=== PATIENT | female | born 1960 | race Caucasian/White ===

== ENCOUNTER 2016-07-18 20:16 | Emergency (ER) | payer BC ==
[2016-07-18 20:45] VITALS: BP 110/55
--- NOTE | 2016-07-18 21:48 | UC ---
Abdominal Pain Female HPI - HPI Summary HPI Summary: The patient comes in today for: 1. "stomach pain": Onset: two weeks. Palliative/provocative: Tums seemed to help, but for only 30 minutes. Leaning forward or walking may help "a little bit." Quality: Sharp stabbing pain. Region: Midline from below the navel to the epigastric area. Severity: Tonight, the pain was 8/10--now it is 2/10 Time: Associated symptoms: Frequency: One episode one week ago--lasting about 2 hours Second episode 3 days ago--2-3 hours. Third episode--tonight--2 hours--now it is subsiding FEvers: None. Vomitinst episode, but nausea with the other ones. Diarrhea: Second episode only. Travel. Last BM: this morning and it was normal. Previous disease: Pancreas--none. She had her gallbladder out. She had an upper endoscopy 2 years ago done for "something similar to this." Dx. gastritis. Prilosec taken which helped. But, she did not continue it with her osteopenia. She takes naproxen/aleve for her migraines. Her intake of NSAIDS will be 1- 2 times a week. 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 Allergies/Adverse Reactions: Allergies Allergy/AdvReac Type Severity Reaction Status Date / Time Codeine Allergy Hives Verified 07/18/16 20:37 Home Medications: Home Medications Cholecalciferol [Vitamin D] 2,000 units PO DAILY 07/18/16 [History Confirmed ] Ibuprofen [Advil] 200 mg PO Q6H PRN 07/18/16 [History Confirmed 07/18/16] PMH/Surg Hx/FS Hx/Imm Hx Previously Healthy: No Endocrine History Of: Reports: Thyroid Disease Denies: Diabetes, Hyperthyroidism, Hypothyroidism, Dyslipidemia Cardiovascular History Of: Denies: Cardiac Disorders - diagnosed RBBB, mitral valve prolapse, Hypertension, Pacemaker/ICD, Myocardial Infarction, Congestive Heart Failure, Atrial Fibrillation, Deep Vein Thrombosis, Bleeding Disorders Respiratory History Of: Denies: COPD, Asthma, Bronchitis, Pneumonia, Pulmonary Embolism GI/ History Of: Reports: Gastroesophageal Reflux Denies: Ulcer, Gastrointestinal Bleed, Gall Bladder Disease, Kidney Stones, Diverticulitis, Renal Disease, Urosepsis Neurological History Of: Reports: Migraine Denies: TIA, CVA, Dementia, Seizures Psychological History Of: Denies: Anxiety, Depression, Bipolar Disorder, Schizophrenia, Post Traumatic Stress Disorder Cancer History Of: Denies: Lung Cancer, Colorectal Cancer, Breast Cancer, Prostate Cancer, Cervical Cancer Other History Of: Negative For: HIV, Hepatitis B, Hepatitis C, Anticoagulant Therapy - Surgical History Surgical History: Yes Surgery Procedure, Year, and Place: Cholecystectomy, deviated septum - Family History Known Family History: Positive: Cardiac Disease, Hypertension - Social History Occupation: Employed Full-time Alcohol Use: Rare Substance Use Type: None Smoking Status (MU): Never Smoked Tobacco Review of Systems Constitutional: Negative Skin: Negative Eyes: Negative ENT: Negative Respiratory: Negative Cardiovascular: Negative Gastrointestinal: Abdominal Pain All Other Systems Reviewed And Are Negative: Yes Physical Exam Triage Information Reviewed: Yes Appearance: Well-Appearing, No Pain Distress, Well-Nourished Vital Signs: Initial Vital Signs Temp 97.8 F 07/18/16 20:40 Pulse 68 07/18/16 20:40 Resp 16 07/18/16 20:40 BP 110/55 07/18/16 20:40 Pulse Ox 100 07/18/16 20:40 Vital Signs Reviewed: Yes Eyes: Positive: Conjunctiva Clear. Negative: Discharge ENT: Positive: Hearing grossly normal. Negative: Pharyngeal erythema, Nasal congestion, Nasal drainage, TM bulging, TM dull, TM red, Tonsillar swelling, Tonsillar exudate Neck: Positive: Supple, Nontender, No Lymphadenopathy Respiratory: Positive: Lungs clear, No respiratory distress, No accessory muscle use. Negative: Crackles, Wheezing Cardiovascular: Positive: RRR, No Murmur Abdomen Description: Positive: No Organomegaly, Soft. Negative: Nontender - She has mild tenderness in the suprapubic area and the epigastric area. There is no rebound tenderness or percussion tenderness., Distended, Guarding Musculoskeletal: Positive: Strength Intact, ROM Intact Neurological: Positive: Alert, Muscle Tone Normal Psychological: Positive: Normal Response To Family, Age Appropriate Behavior, Consolable Skin: Negative: rashes, breakdown Abd Pain Female Course/Dx - Course Course Of Treatment: The patient was told that I did not know for sure what was causing her abdominal pain. She was offered a pelvic for evaluation of her suprapubic pain and a urine screen. But, she declined these. Treatment for gastritis was discussed and the only treatment she wanted from us was an H-2 behzad. She was encouraged to see her primary care provider for this as she declined going to the ER. - Differential Dx/Diagnosis Differential Diagnosis: Constipation, Pancreatitis Provider Diagnoses: abdominal pain Discharge - Discharge Plan Condition: Stable Disposition: HOME Patient Education Materials: Abdominal Pain (ED)
[2016-07-18] MEDS ORDERED: Famotidine TAB* 20 MG PO ONE (22:01)
== END 2016-07-18 22:15 | disposition home or self-care (01) ==
LOC: UCEAST 20:16
DX: R10.33 Periumbilical pain (principal); R10.13 Epigastric pain; E07.9 Disorder of thyroid, unspecified; K21.9 Gastro-esophageal reflux disease without esophagitis; G43.909 Migraine, unspecified, not intractable, without status migrainosus; Z88.5 Allergy status to narcotic agent
CPT/HCPCS: 99202; A9270-GY; G0463